=== PATIENT | male | born 2000 | race Two or more races ===

== ENCOUNTER 2024-08-17 17:27 | Emergency (ER) | payer OTHER ==
[~2024-08-17] VITALS: Ht 182.9 cm; Wt 104.3 kg
[2024-08-17] MEDS ORDERED: FAMOTIDINE/PF 20 MG/2 ML VIAL IV ONE (18:15)
[2024-08-17] MEDS ORDERED: 0.9 % SODIUM CHLORIDE 1,000 ML IV ONE (18:15)
[2024-08-17] MEDS ORDERED: ONDANSETRON HCL 2 MG/ML VIAL IV ONE (18:15)
[2024-08-17] MEDS ORDERED: ACETAMINOPHEN 500 MG GEL..CAP PO ONE (18:15)
[2024-08-17 18:39] LABS: HEMATOCRIT 43.2 % (39.0-48.0); HEMOGLOBIN 15.4 g/dL (13-16.00); MEAN CELL VOLUME 82.7 fL (80.0-100.00); MEAN CORPUSCULAR HEMOGLOBIN 29.4 pg (27.00-32.0); MEAN CORPUSCULAR HGB CONC 35.6 g/dl (32.0-36.0); PLATELET COUNT 376 K/uL (150-450); RED BLOOD COUNT 5.22 M/uL (4.00-6.00); RED CELL DISTRIBUTION WIDTH 12.6 % (11.5-14.5)
[2024-08-17 19:05] LABS: ALBUMIN 4.7 gm/dL (3.4-5.0); BILIRUBIN TOTAL 0.6 mg/dL (0.3-1.2); CALCIUM 10.2 mg/dL (8.5-10.1); GFR 93.44; GLOBULINA 3.8 G/DL (2.4-3.5); MAGNESIUM 1.8 mg/dL (1.8-2.4); POTASSIUM 3.35 mEq/L (3.5-5.1); TOTAL PROTEIN 8.5 gm/dL (6.4-8.2)
[2024-08-17 19:08] LABS: PHOSPHOROUS 1.2 mg/dL (2.5-4.9)
[2024-08-17] MEDS ORDERED: METOCLOPRAMIDE HCL 5 MG/ML VIAL IV ONE (19:15)
[2024-08-17] MEDS ORDERED: POTASSIUM PHOS,M-BASIC-D-BASIC 15 MM in 0.9 % SODIUM CHLORIDE 250 ML IV ONE (19:30)
[2024-08-17 19:35] LABS: ABG PH 7.455 (7.35-7.45); ABG PO2 104.3 mmHg (80-100); ABG pCO2 29.8 mmHg (35-45); BASE EXCESS -2.1 mmol/l; BICARBONATE 20.5 mmol/l (23-25); SaO2 98.3 %; Tco2 21.4 mmol/l
[2024-08-17 20:00] LABS: PH,URINE 7.5 (5.0-8.0); URINE APPEARANCE Error; URINE BILIRRUBIN Negative (NEGATIVE); URINE BLOOD Negative; URINE COLOR Dark Yellow; URINE GLUCOSE Negative (NEGATIVE); URINE KETONE 15 (NEGATIVE); URINE LEUKOCYTE Negative; URINE NITRATE Negative; URINE PROTEIN 30 (NEGATIVE)
[2024-08-17 20:02] LABS: allen test SATISFACTORY; o2 21 %; puncture site RADIAL RIGHT
[2024-08-17 20:03] LABS: URINE BACTERIA 17.6 uL (0.0-1933); URINE EPITHELIAL CELLS 2.6 uL (0.0-38.8); URINE RBC 6.8 uL (0.0-20.8)
[2024-08-17 20:30] LABS: URINE CAST 0.76 uL (0.0-1.40)
[2024-08-17 20:31] LABS: COCAINE NEGATIVE (NEGATIVE); METHADONE NEGATIVE (NEGATIVE); OPIATES NEGATIVE (NEGATIVE); THC ( Cannabinoids) POSITIVE (NEGATIVE)
[2024-08-17] MEDS ORDERED: KETOROLAC TROMETHAMINE 30 MG VIAL IV ONE (21:30)
== END 2024-08-18 04:16 ==
LOC: ER 17:29
PROVIDERS: Nurse Practitioner Family
DX: E83.39 Other disorders of phosphorus metabolism (principal); E86.0 Dehydration; R11.10 Vomiting, unspecified